=== PATIENT | male | born 2000 | race Caucasian/White ===

== ENCOUNTER 2024-05-27 10:16 | Emergency (ER) | payer OTHER, SELFPAY ==
[2024-05-27 10:16] VITALS: BMI 38.4
[2024-05-27 11:05] VITALS: BP 152/94; PULSE 102; RESP 18; TEMP 36.7; O2SAT 98
--- NOTE | 2024-05-27 11:17 | XR_ITS ---
Examination: Knee, right 3 views Exam date and time: May 27, 2024 1139 hours INDICATIONS: Patient fell today with injury to the knee, knee pain. Technique: Knee AP, lateral, oblique 3 views Findings: No fracture or dislocation No foreign body IMPRESSION: No fracture or dislocation
--- NOTE | 2024-05-27 11:18 | EDNOTE_ITS ---
Lower Extremity Injury RME/HPI General Chief Complaint: Extremity Injury, Lower Stated Complaint: RIGHT KNEE PAIN Time Seen by Provider: 05/27/24 10:48 Arrival date/time: 05/27/24 10:16 RME / HPI RME / HPI Narrative: 24-year-old male patient came in for evaluation regarding right knee pain. Patient sustained injury yesterday after a fall resulting in the pain to the right knee, he was okay yesterday however this morning patient woke up with worsening pain, described as dull ache, severity moderate. Denies any other injury no medication was taken prior to arrival. Related Data Home Medications ?Medication ?Instructions ?Recorded ?Confirmed penicillin V potassium 500 mg 500 mg PO QDAY ##0 02/10 tablet Previous Rx's ?Medication ?Instructions ?Recorded azithromycin 250 mg tablet 2 tab PO QDAY #6 tabs 02/10 nystatin 100,000 unit/mL oral 1 tsp PO QID #60 mL 09/18 suspension ibuprofen 200 mg capsule (Motrin 400 mg (2 x 200 mg) P O QID PRN 12/26/18 IB) fever or pain #30 caps ibuprofen 800 mg tablet 800 mg PO Q8H PRN pain #30 t abs 05/27/24 Allergies Allergy/AdvReac Type Severity Reaction Status Date / Time NKA* Allergy Uncoded 05/27/24 10:17 Review of Systems Review of Systems Narrative Review of Systems: Review of system reviewed and within normal limits except mentioned in HPI ED Exam Narrative Physical exam: VITAL SIGNS: Reviewed. GENERAL APPEARANCE: Alert and interactive, follows commands, no acute distress, HEAD AND FACE: Non-traumatic. ENT: PERRL, pink conjunctivitis, eyelid no trauma, Mucous membrane moist. NECK: Supple, nontender, no nuchal rigidity. CHEST: No tenderness, no crepitus, no paradoxical movement, no retractions. LUNGS: Clear, well ventilated, symmetric, no rales, no wheezing, no ronchi, no stridor, good breath sounds bilaterally. HEART: Regular rate, regular rhythm, no murmur, no gallops. ABDOMEN: Soft, positive bowel sounds, nondistended, no guarding, nontender, no rebound, no masses, RECTAL: Deferred. GENITAL: Deferred. NEUROLOGICAL: Gross motor function intact sensory function intact, Appropriate for age. MUSCULOSKELETAL: low back nontender, full range of motion. EXTREMITIES: Right knee tenderness, no swelling no deformity full range of motion of the knee SKIN: Color pink, dry, no rash, no lacerations, no abrasions, no contusions. LYMPHATICS: Deferred. Course Quality Measures none Orders Category Date Time Status XR knee RT 3V Stat Exams 05/27/24 11:17 Completed Ketorolac Inj [Toradol Inj] Med 05/27/24 11:18 Discontinued 30 mg IM X1 ONE Vital Signs Vital signs: Vital Signs Temperature 98.1 F 05/27/24 11:05 Pulse Rate 102 H 05/27/24 11:05 Respiratory Rate 18 05/27/24 11:05 Blood Pressure 152/94 H 05/27/24 11:05 Pulse Oximetry (%) 98 05/27/24 11:05 Oxygen Delivery Method Room Air 05/27/24 11:05 Extremity Injury, Lower MDM Narrative MDM Narrative:: 24-year-old male patient came in for evaluation regarding right knee pain. Patient sustained injury yesterday after a fall resulting in the pain to the right knee, he was okay yesterday however this morning patient woke up with worsening pain, described as dull ache, severity moderate. Denies any other injury no medication was taken prior to arrival. X-ray of the knee came back unremarkable. Results discussed with the patient and family. Patient was advised to have an outpatient MRI with PCP if the pain persist for more than 2 weeks. Patient agrees with the plan. Patient appears nontoxic and hemodynamically stable. Patient discharged home and instructed to follow-up with primary care provider in 24 to 48 hours. Instructed to return to the emergency department immediately if worsening of symptoms Patient data External records reviewed:: None Clinical information provided by:: patient Social determinants that could affect healthcare access:: none Patient has the following chronic illnesses:: None How is presenting disease/condition affected by chronic disease/condition?: no chronic disease Evaluation data The following diagnostics were reviewed and interpreted by me:: radiology exam(s) Lab and/or radiology exams considered but not ordered:: Okay none Interpretation Summary: X-ray of the knee came back unremarkable. Medications / Prescriptions Medications or Prescriptions considered but not ordered:: None Medication administrations:: Medication Administration History Discontinued Medications Ketorolac Tromethamine (Ketorolac Inj 60 Mg/2 Ml Vial) 30 mg IM X1 ONE Stop: 05/27/24 11:19 Toradol IM Consultations Consultation(s) initiated? (list below): No Diagnosis Extremity Injury, Lower Differential Diagnosis: other (Knee pain knee dislocation knee fracture) Most likely diagnosis given after review of the tests above:: Knee pain Admission Indicated Admission indicated?: not indicated Admission Request Was there a request for admission?: No Disposition Plan Disposition Plan: Discharge Discharge Attestation Discharge Attestation: The patient and all family members were given an opportunity to ask questions and understood the discharge instructions. Discharge instructions specifically effects, indications for sooner follow up or return to the emergency department, and the expected course of current diagnosis. Patient condition: Stable Discharge Plan Plan Patient Disposition: HOME (Self Care) Disposition Comment: stable Prescriptions/Referrals Prescriptions/Med Rec: New ibuprofen 800 mg tablet 800 mg PO Q8H PRN (Reason: pain) Qty: 30 0RF No Action penicillin V potassium 500 MG tablet 500 mg PO QDAY Qty: 0 nystatin 60 ML suspension 1 tsp PO QID Qty: 60 0RF Rx Instructions: SWISH AND SWALLOW azithromycin 250 MG tablet 2 tab PO QDAY Qty: 6 0RF ibuprofen [Motrin IB] 200 mg capsule 400 mg PO QID PRN (Reason: fever or pain) Qty: 30 0RF Referrals: No Primary/Family,Physician [Primary Care Provider] - In 1 week Problem List Clinical Impression: Acute knee pain Patient/Caregiver Discharge Instructions Discharge Activity: activity as tolerated Education Materials: How Your Knee Works, Knee Pain Additional Instructions: Thank you for the opportunity for serving you today. You are stable for discharged . You are advised to: Follow-up with your PCP in 1 to 2 days unless your PCP to refer you to a sports management professor MD or do MRI outpatient if your knee pain persist for more than 2 weeks Return to ED for worsening of symptoms Increase oral fluids Take medication as prescribed Print Language: Thai Stand Alone Forms: [employer] Award Info., Work/School Release, Patient Portal Info Letter
[2024-05-27] MEDS: KETOROLAC INJ 60 MG/2 ML VIAL 30 MG IM (13:04)
== END 2024-05-27 13:44 | disposition home or self-care (01) ==
PROVIDERS: Emergency Provider Emergency Medicine
DX: S89.91XA Unspecified injury of right lower leg, initial encounter (principal); W19.XXXA Unspecified fall, initial encounter
CPT/HCPCS: 73562; 96372; 99283; J1885